=== PATIENT | female | born 1975 | race Two or more races ===

== ENCOUNTER → 2016-10-13 | Outpatient (CLI) | payer BC ==
--- NOTE | ~2016-10-13 | CT70 ---
[facility] A Service of [facility] RADIOLOGY TEXT RESULTS PATIENT: ULISSES SAUNDERS LOCATION: [facility] : 71 UNIT #: [id number] AGE: [address]: Carlitos Brannon MD SEX: F ORDER DR: [id number] [facility]. [place], [place] [address] [id number] O MR#: [id number] Acc #: [id number] NAME: ULISSES SAUNDERS : 1975 SEX: F STUDY DATE/TIME: 10/13/2016 8:48 UNIT: [facility] ROOM: STUDY DESCRIPTION: CT Head WWo Contrast Attending Physician: Carlitos Brannon M.D. Referring Physician: Carlitos Brannon M.D. Ordering Physician: Carlitos Brannon M.D. Primary Care Physician: No Primary Care Physician MEDICAL IMAGING REPORT This report is preliminary unless electronic signature is present EXAM Head CT with and without contrast. HISTORY Left scalp mass for 4 days and also complains of blurred vision. PROCEDURE Axial head CT before and after IV contrast. This CT exam was performed with one or more of the following radiation dose reduction techniques: Automatic exposure control, adjustment of mA and/or kV according to patient size, and iterative reconstruction. FINDINGS There is mild thickening over the left temporal scalp/temporalis muscle of uncertain etiology. Brain parenchymal density is normal and there is no intracranial mass. Post contrast images show no abnormal enhancement. The skull base and calvarium are normal. IMPRESSION Left temporal scalp/temporalis muscle soft tissue thickening of uncertain etiology, otherwise, normal head CT with and without contrast. Dictated by... Shaquille Booker M.D. THIS IS AN ELECTRONICALLY VERIFIED REPORT Shaquille Booker M.D. at 10/13/2016 4:26 PM TEV/bd TD: 10/13/2016 13:00 JOB #: [id number] [facility] A Service of [facility] RADIOLOGY TEXT RESULTS PATIENT: ULISSES SAUNDERS LOCATION: [facility] : 71 UNIT #: [id number] AGE: [address]: Carlitos Brannon MD SEX: F ORDER DR: MEDICAL IMAGING REPORT Page 1 of 1 COPY
== END | disposition home or self-care (01) ==
LOC: CCAT 07:54
DX: R22.0 Localized swelling, mass and lump, head (principal); H54.61 Unqualified visual loss, right eye, normal vision left eye; R51 Headache; Z15.01 Genetic susceptibility to malignant neoplasm of breast; M79.89 Other specified soft tissue disorders
CPT/HCPCS: 70470; Q9967